=== PATIENT | male | born 1950 | race Caucasian/White ===

== ENCOUNTER → 2020-09-15 | Outpatient (CLI) | payer BC ==
[2020-09-15 17:03] LABS: BLOOD UREA NITROGEN 11 MG/DL (7-18); CALCIUM LEVEL 9.2 MG/DL (8.8-10.2); CARBON DIOXIDE LEVEL 26 MEQ/L (21-32); CHLORIDE LEVEL 103 MEQ/L (98-107); CREATININE FOR GFR 1.02 MG/DL (0.70-1.30); GLOMERULAR FILTRATION RATE > 60.0 (>42); GLUCOSE, FASTING 237 MG/DL (70-100); POTASSIUM SERUM 4.4 MEQ/L (3.5-5.1); SODIUM LEVEL 135 MEQ/L (136-145)
[2020-09-15 18:01] LABS: APPEARANCE, URINE CLEAR (CLEAR); BACTERIA, URINE AUTO NEGATIVE (NEGATIVE); BILIRUBIN, URINE AUTO NEGATIVE (NEGATIVE); BLOOD, URINE BLOOD NEGATIVE (NEGATIVE); CALCIUM OXALATE CRYSTALS SMALL; COLOR, URINE YELLOW (YELLOW); GLUCOSE, URINE (UA) AUTO 3+ mg/dL (NEGATIVE); KETONE, URINE AUTO TRACE mg/dL (NEGATIVE); LEUKOCYTE ESTERASE, URINE AUTO NEGATIVE (NEGATIVE); NITRITE, URINE AUTO NEGATIVE (NEGATIVE); PROTEIN, URINE AUTO NEGATIVE (NEGATIVE); RBC, URINE AUTO 0 /HPF (0-3); SPECIFIC GRAVITY URINE AUTO 1.018 (1.002-1.035); SQUAMOUS EPITHELIAL CELL UR AU 0 /HPF (0-6); UROBILINOGEN, URINE AUTO 0.2 mg/dL (0.0-2.0); WBC, URINE AUTO 0 /HPF (0-3)
== END ==
LOC: M PLALAB 14:21
PROVIDERS: ATTEND Urology
DX: N28.9 Disorder of kidney and ureter, unspecified (principal)

== ENCOUNTER → 2020-09-26 | Outpatient (CLI) | payer BC ==
[~2020-09-26] MED LIST: ISOVUE-370 76% 100ML VIAL ONE
--- NOTE | 2020-09-27 00:17 | REP ---
INDICATION: KIDNEY LESION CHEMEHUEVI LT. COMPARISON: None TECHNIQUE: Axial pre post contrast-enhanced images from the lung bases to the pubic symphysis using 100 cc Isovue 370 intravenous contrast material. Delayed images of the abdomen obtained along with coronal and sagittal reformations. This CT examination was performed using the following dose reduction techniques: Automated exposure control, adjustment of mA and/or kv according to the patient's size, and the use of iterative reconstruction technique. FINDINGS: Liver, spleen, pancreas, bilateral adrenal glands and right kidney are normal. Left kidney includes a 1.4 cm round hyperdense lesion along the anterior superior pole which remains unchanged in Hounsfield units through precontrast, contrast-enhanced, and delayed sequences most compatible with complex proteinaceous cyst. No further renal lesion identified. The enteric system including stomach, small, and large bowel appears normal. No evidence for obstruction or acute inflammatory process. Scattered sigmoid diverticula noted without acute diverticulitis. Pelvis demonstrates normal bladder and enlarged prostate gland with mass effect on the base of the bladder. No ascites. No free air. No intraperitoneal or retroperitoneal adenopathy. Abdominal aorta and vasculature appear normal. Musculoskeletal structures are intact and without acute osseous abnormality. IMPRESSION: No acute abdominopelvic pathology appreciated. 1.4 cm left renal lesion likely representing proteinaceous cyst and less likely mass lesion. Consider 6-9 month follow-up ultrasound examination to confirm stability and as sonographic baseline. <Electronically signed by Roe Michelle > 09/27/20 0014
== END ==
LOC: M PLAIMG 09:58
PROVIDERS: ATTEND Urology
DX: N28.9 Disorder of kidney and ureter, unspecified (principal)
CPT/HCPCS: 74178; Q9967

== ENCOUNTER → 2020-11-22 | Outpatient (CLI) | payer BC ==
[~2020-11-22] MED LIST changes: -ISOVUE-370 76% 100ML VIAL ONE; +OMEGA-3 1000MG CAPSULE ONE
--- NOTE | 2020-11-22 11:45 | REPVR ---
PROCEDURE INFORMATION: Exam: MR Thoracic Spine Without Contrast Exam date and time: 11/22/2020 10:35 AM Age: 70 years old Clinical indication: Pain in thoracic spine; Additional info: Abd pain, thoracic/lumbar disc degeneration TECHNIQUE: Imaging protocol: Multiplanar magnetic resonance images of the thoracic spine without contrast. COMPARISON: CT ABD PELVIS W/O FOL BY TATYANA 09/26/2020 10:02 AM FINDINGS: Vertebrae: Unremarkable. Spinal cord: Normal signal. No cord compression. Discs/Spinal canal/Neural foramina: Mild degenerative changes of the thoracic spine are present. At T3-4, there is a tiny central disc protrusion, without canal stenosis. At T7-8, there is a small central disc protrusion, causing minimal canal stenosis. T10-11, there is a tiny shallow right paracentral disc protrusion, without canal stenosis. At T11-12, there is mild diffuse circumferential disc bulging without significant canal stenosis. Moderate right and mild left neural foraminal narrowing at T11-12 is present due to facet arthropathy and diffuse disc bulging. Soft tissues: Unremarkable. IMPRESSION: No acute abnormality. Electronically signed by: Moshe Dick On 11/22/2020 11:45:28 AM
--- NOTE | 2020-11-22 11:50 | REP ---
INDICATION: ABD PAIN, THORACIC/LUMBAR DISC DEGENERATION. COMPARISON: CT 09/26/2020. TECHNIQUE: Multiple sequences obtained in the coronal and axial planes without the use of intravenous contrast. FINDINGS: No signal abnormality is seen in the liver. The patient has had a prior cholecystectomy. The common bile duct has a maximum diameter of 9 mm with no evidence of definite internal filling defect. The spleen is enlarged measuring 15.6 cm in length. The adrenal glands are unremarkable, as is the pancreas. There is no pancreatic duct dilatation. There is a nodule anteriorly in the upper pole of the left kidney 1.4 cm in diameter. This is unchanged since the prior CT 09/26/2020. It is hyperintense on T1 and hypointense on T2 most consistent with a proteinaceous or hemorrhagic cyst. There is no hydronephrosis bilaterally. There is no adenopathy. There is no abdominal aortic aneurysm. There is no free fluid. IMPRESSION: Status post cholecystectomy without significant biliary dilatation. Mild splenomegaly. A lesion in the upper pole of the left kidney is most compatible with a hemorrhagic or proteinaceous cyst. <Electronically signed by Gerald Saha > 11/22/20 [id number]
--- NOTE | 2020-11-22 12:05 | REPVR ---
PROCEDURE INFORMATION: Exam: MR Lumbar Spine Without Contrast Exam date and time: 11/22/2020 10:54 AM Age: 70 years old Clinical indication: Low back pain; Additional info: Abd pain, thoracic/lumbar disc degeneration TECHNIQUE: Imaging protocol: Multiplanar magnetic resonance images of the lumbar spine without intravenous contrast. COMPARISON: MRI-Spine,Thoracic without con 11/22/2020 10:02 AM FINDINGS: Vertebrae: No acute compression fracture is seen. There is minor retrolisthesis of L1 on L2, L2 on L3, and L3 on L4. There is mild anterolisthesis of L4 on L5 and L5 on S1.There are chronic bilateral pars defects at L5. Degenerative marrow edema is present along the L2-L3 and L5-S1 endplates. Spinal cord: The conus medullaris terminates at the L1 level. Cauda equina compression is present at L3-L4 level. L1-L2: There is mild diffuse circumferential disc bulging and facet arthropathy. This is causing mild left and minimal right neural foraminal narrowing. There is no significant spinal canal stenosis. L2-L3: There is moderate diffuse circumferential disc bulging, thickening of the ligamentum flavum, and facet arthropathy. This is causing mild spinal canal stenosis, severe narrowing of the subarticular recesses, moderate left neural foraminal narrowing, and moderate/severe right neural foraminal narrowing. L3-L4: There is marked diffuse circumferential disc bulging, severe thickening/buckling of the ligamentum flavum, and severe facet arthropathy. This is causing severe spinal canal stenosis, severe narrowing of the subarticular recesses, and moderate bilateral neural foraminal narrowing. L4-L5: There is mild diffuse circumferential disc bulging, circumferential osteophytic ridging, severe facet arthropathy, and thickening of the ligamentum flavum. This is causing moderate spinal canal stenosis, severe narrowing of the subarticular recesses, moderate right neural foraminal narrowing, and mild left neural foraminal narrowing. L5-S1: There is marked diffuse circumferential disc bulging with a superimposed small central disc protrusion. Severe facet arthropathy is also present. This is causing minimal spinal canal stenosis, mild narrowing of the left subarticular recess, and severe bilateral neural foraminal narrowing. There is compression of the bilateral exiting L5 nerves. Soft tissues: Subcutaneous edema is present in the lower back. IMPRESSION: 1. 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 Marked degenerative changes of the lumbar spine as discussed above. There is severe spinal canal stenosis and cauda equina compression at L3-L4. Electronically signed by: Moshe Dick On 11/22/2020 12:05:21 PM
== END ==
LOC: M PLAIMG 09:42
PROVIDERS: ATTEND Internal Medicine
DX: R10.9 Unspecified abdominal pain (principal); M51.36 Other intervertebral disc degeneration, lumbar region; M51.34 Other intervertebral disc degeneration, thoracic region; R16.1 Splenomegaly, not elsewhere classified

== ENCOUNTER → 2020-12-14 | Outpatient (CLI) | payer BC ==
--- NOTE | 2020-12-14 16:54 | REP ---
INDICATION: YAZ KNEE OA. COMPARISON: Comparison right knee radiographs August 09, 2020. Comparison right knee MRI study 30 March 2019. TECHNIQUE: Axial, coronal, and sagittal imaging planes utilized. T1, proton density, and T2 weighted scans are obtained in the usual fashion with without fat saturation. FINDINGS: A moderate to large joint effusion is again noted. There is subcortical cyst formation in the lateral tibial plateau.rr this septated cystic area measures 1.4 cm in greatest diameter. The cyst in this location previously measured only 0.7 cm. There is no evidence of adjacent edema. Cortical and medullary bone signal intensity are otherwise normal. There is are well established medial and lateral tibiofemoral spurs indicating moderate to advanced osteoarthritis. There is mild to moderate patellofemoral spur formation. There is moderate fairly diffuse cartilage thinning of the patella. There is full-thickness cartilage loss in the medial tibiofemoral compartment both in the medial femoral condyle and in the medial tibial plateau. There is mild to moderate chondromalacia in the lateral compartment. There is a 10 mm loose body in the posterior joint line just posterior to the distal insertion of the posterior cruciate ligament. A 2nd possible smaller osteocartilaginous loose body is seen adjacent to this. There is increased signal intensity in the anterior cruciate ligament consistent with degeneration changes or prior tear. There is no evidence of medial or lateral collateral ligament disruption. There is medial bowing of the MCL associated with medial compartment spur formation and virtually complete medial extrusion of the medial meniscus. I suspect detachment of the medial meniscus as the posterior horn is quite diminutive and the midbody appears to be clumped under the MCL extruded medially from the joint. These findings are essentially unchanged. There is mild extra-articular soft tissue edema. This is unchanged. IMPRESSION: Moderate to severe 3 compartment osteoarthritis. Extrusion of the medial meniscus. Joint effusion. 1 and possibly a 2nd osteocartilaginous loose body posteriorly. Advanced chondromalacia changes. Enlarging subcortical cystic area in the lateral tibial plateau metaphysis region. <Electronically signed by Eddie Garcia > 12/14/20 [id number]
--- NOTE | 2020-12-14 17:02 | REP ---
INDICATION: YAZ KNEE OA. COMPARISON: Comparison radiographs of the left knee are from August 09, 2020. Comparison MRI study of the left knee is from March 30, 2019. TECHNIQUE: Axial, coronal, and sagittal imaging planes utilized. T1, proton density, and T2 weighted scans are obtained in the usual fashion with without fat saturation. FINDINGS: There are areas of subarticular marrow edema in the medial tibial plateau and medial femoral condyle. Cortical and medullary bone signal intensity are otherwise normal. There is a small joint effusion. This is slightly less the than the effusion seen on 30 March 2019 MR. Medial and lateral patellar retinacular structures appear intact. Quadriceps and patellar tendons are intact. There is increased signal intensity diffusely in the anterior cruciate ligament consistent with degeneration. Posterior cruciate ligaments intact. There is no evidence of medial or lateral to the collateral ligament disruption. There is medial bowing of the medial collateral ligament associated with medial tibiofemoral osteophyte formation and medially extruded meniscal material. The body of the medial meniscus appears clumped under the medial collateral ligament associated with a spurring. There is advanced chondromalacia in the medial compartment with full-thickness articular cartilage loss and joint space narrowing. Moderate chondromalacia is seen in the lateral tibiofemoral compartment. There is mild chondromalacia in the lateral patellar facet. No observable loose body is seen. No lateral meniscal tear is appreciated. IMPRESSION: Advanced 3 compartment osteoarthritis. Medial meniscal extrusion and marked medial compartment cartilage loss. Joint effusion. Findings quite similar to the March 30, 2019 prior study <Electronically signed by Eddie Garcia > 12/14/20 [id number]
== END ==
LOC: M PLAIMG 13:37
PROVIDERS: ATTEND Internal Medicine
DX: M17.0 Bilateral primary osteoarthritis of knee (principal)

== ENCOUNTER → 2022-03-27 | Outpatient (CLI) | payer BC | LOC: M PLAIMG 13:55 | PROVIDERS: ATTEND Internal Medicine | DX: M50.31 Other cervical disc degeneration, high cervical region (principal); M50.322 Other cervical disc degeneration at C5-C6 level; M50.323 Other cervical disc degeneration at C6-C7 level; M48.07 Spinal stenosis, lumbosacral region; G61.9 Inflammatory polyneuropathy, unspecified; M25.78 Osteophyte, vertebrae; M51.36 Other intervertebral disc degeneration, lumbar region ==

== ENCOUNTER → 2022-05-02 | Outpatient (CLI) | payer BC ==
[2022-05-02 15:30] LABS: BASO % 0.4 % (0.0-1.0); EOS # 0.1 10^3/uL (0.0-0.5); HEMATOCRIT 37.1 % (42.0-52.0); HEMOGLOBIN 12.8 g/dl (13.5-17.5); LYMPH # 1.4 10^3/uL (1.5-5.0); LYMPH % 19.3 % (24.0-44.0); MEAN CORPUSCULAR HEMOGLOBIN 31.4 pg (27.0-33.0); MEAN CORPUSCULAR HGB CONC 34.5 g/dl (32.0-36.5); MEAN CORPUSCULAR VOLUME 90.9 fl (80.0-96.0); MONO # 0.5 10^3/uL (0.0-0.8); MONO % 6.4 % (2.0-8.0); NEUTROPHILS # 5.1 10^3/uL (1.5-8.5); NEUTROPHILS % 71.5 % (36.0-66.0); PLATELET COUNT, AUTOMATED 150 10^3/uL (150-450); RED BLOOD COUNT 4.08 10^6/uL (4.30-6.10); WHITE BLOOD COUNT 7.1 10^3/uL (4.0-10.0)
[2022-05-02 15:33] LABS: TOTAL IRON BINDING CAPACITY 383 UG/DL (250-425)
[2022-05-02 15:37] LABS: IRON (FE) 60 UG/DL (65-175); PERCENT SATURATION 15.7 % (19.7-50.0)
[2022-05-02 15:38] LABS: RHEUMATOID FACTOR QUANT < 3.5 IU/ML (<14)
[2022-05-02 15:43] LABS: ERYTHROCYTE SEDIMENTATION RATE 1 mm/hr (0-20)
[2022-05-02 15:51] LABS: ALBUMIN 3.9 G/DL (3.2-5.2); ALKALINE PHOSPHATASE 99 U/L (46-116); ALT/SGPT 20 U/L (7.0-40); AST/SGOT 20 U/L (<34); BILIRUBIN,TOTAL 0.7 MG/DL (0.3-1.2); BLOOD UREA NITROGEN 10 MG/DL (9-23); CALCIUM LEVEL 8.8 MG/DL (8.3-10.6); CARBON DIOXIDE LEVEL 27 MMOL/L (20-31); CHLORIDE LEVEL 100 MMOL/L (98-107); CREATININE FOR GFR 0.79 MG/DL (0.70-1.30); FERRITIN 38.1 NG/ML (10.5-307.3); FOLATE 16.6 NG/ML (>5.4); FREE THYROXINE INDEX 2.4 % (1.4-3.8); GLOMERULAR FILTRATION RATE > 60.0 (>42); GLUCOSE, FASTING 308 MG/DL (74-106); POTASSIUM SERUM 4.1 MMOL/L (3.5-5.1); SODIUM LEVEL 135 MMOL/L (136-145); T UPTAKE 36.9 % (22.5-37.0); THYROXINE (T4) 6.6 UG/DL (4.5-10.9); VITAMIN B12 LEVEL 594 PG/ML (211-911)
[2022-05-02 21:39] LABS: TOTAL PROTEIN 6.2 G/DL (5.7-8.2)
== END ==
LOC: M PLALAB 13:38
PROVIDERS: ATTEND Psychiatry & Neurology Neurology
DX: D51.9 Vitamin B12 deficiency anemia, unspecified (principal); E11.9 Type 2 diabetes mellitus without complications; D50.9 Iron deficiency anemia, unspecified; G62.9 Polyneuropathy, unspecified; E07.9 Disorder of thyroid, unspecified

== ENCOUNTER → 2022-11-26 | Outpatient (CLI) | payer BC | LOC: M SOG 07:55 | PROVIDERS: ATTEND Orthopaedic Surgery | DX: M19.012 Primary osteoarthritis, left shoulder (principal) ==

== ENCOUNTER → 2024-07-08 | Outpatient (REF) | payer BC ==
[~2024-07-08] MED LIST changes: +CO Q200C10 PO; +CURC500C PO; +MAGN400C PO; +METF10004; -OMEGA-3 1000MG CAPSULE ONE; +OMEP-173; +SERTRALINE; +TRUL10IN; +eye promise PO
== END ==
LOC: M LAB REF 14:36
PROVIDERS: ATTEND Nurse Practitioner Women's Health
DX: D50.9 Iron deficiency anemia, unspecified (principal)